=== PATIENT | female | born 1965 | race Caucasian/White ===

== ENCOUNTER 2025-01-07 21:14 | Emergency (ER) | payer BC | END 2025-01-07 23:20 | disposition home or self-care (01) | LOC: NAV ERS 21:14 | DX: F41.0 Panic disorder [episodic paroxysmal anxiety] (principal); I10 Essential (primary) hypertension; E78.5 Hyperlipidemia, unspecified; E05.00 Thyrotoxicosis with diffuse goiter without thyrotoxic crisis or storm; E11.9 Type 2 diabetes mellitus without complications; Z79.85 Long-term (current) use of injectable non-insulin antidiabetic drugs; Z79.899 Other long term (current) drug therapy | CPT/HCPCS: 93005; 99284 ==

== ENCOUNTER 2025-09-20 18:57 | Emergency (ER) | payer BC ==
[2025-09-20] MEDS ORDERED: Boostrix 0.5 ML (Tdap) VIAL (>/=7 yrs of age) ONE (20:01)
[2025-09-20] MEDS ORDERED: Bacitracin 1 PK ONE (20:01)
[2025-09-20] MEDS ORDERED: Amoxicillin/Potassium Clav 875 MG TAB ONE (20:01)
[2025-09-20] MEDS ORDERED: Acetaminophen 325 MG TAB ONE (21:12)
== END 2025-09-20 21:20 | disposition home or self-care (01) ==
LOC: NAV ERS 18:57
DX: S61.051A Open bite of right thumb without damage to nail, initial encounter (principal); E78.5 Hyperlipidemia, unspecified; I10 Essential (primary) hypertension; Z23 Encounter for immunization; Z79.899 Other long term (current) drug therapy; W55.01XA Bitten by cat, initial encounter; Y93.89 Activity, other specified
CPT/HCPCS: 90471; 90715